=== PATIENT | female | born 1990 ===

== ENCOUNTER 2022-04-07 07:31 | Inpatient (IN) | payer OTHER ==
[~2022-04-07] VITALS: Ht 162 cm; Wt 75.8 kg
[2022-04-07] VITALS (25 sets, daily range): BP systolic 99–124; BP diastolic 53–76
[2022-04-07] MEDS ORDERED: morphine INJ 4 MG/ML 1 ML (VIAL/SYRINGE) IVP NR (10:30)
[2022-04-07] MEDS ORDERED: PREN1TAB19 PO (10:38)
[2022-04-07] MEDS ORDERED: AMPICILLIN FOR IV USE 2,000 MG in NS (IVPB) 50 ML IV SCH (16:03)
[2022-04-07] MEDS ORDERED: D5 LR IV SOLUTION 1,000 ML IV ONE (16:14)
[2022-04-07] MEDS ORDERED: D5 LR IV SOLUTION 1,000 ML IV SCH (16:15)
[2022-04-07] MEDS ORDERED: LIDOCAINE/EPI 2% 1:200,00 (XYLOCAINE) 10 ML VIAL INJ PRN (16:15)
[2022-04-07] MEDS ORDERED: OXYTOCIN PRE-MIX DRIP 500 ML IV SCH ×2 (16:15→21:45)
[2022-04-07 16:54] LABS: BASOPHILS # (AUTO) 0.1 10^3/uL (0.0-0.1); BASOPHILS % (AUTO) 1 % (0-10); EOSINOPHILS # (AUTO) 0.1 10^3/uL (0.0-0.3); EOSINOPHILS % (AUTO) 1 % (0-10); HEMATOCRIT 32 % (35-52); HEMOGLOBIN 10.1 g/dL (11.5-16.0); LYMPHOCYTES # (AUTO) 2.3 10^3/uL (1.0-4.0); LYMPHOCYTES % (AUTO) 15 % (12-44); MEAN CORPUSCULAR HEMOGLOBIN 26 pg (25-34); MEAN CORPUSCULAR HGB CONC 32 g/dL (32-36); MEAN CORPUSCULAR VOLUME 82 fL (80-99); MEAN PLATELET VOLUME 9.7 fL (9.0-12.2); MONOCYTES # (AUTO) 0.9 10^3/uL (0.0-1.0); MONOCYTES % (AUTO) 6 % (0-12); NEUTROPHILS # (AUTO) 11.5 10^3/uL (1.8-7.8); NEUTROPHILS % (AUTO) 76 % (42-75); PLATELET COUNT 308 10^3/uL (130-400); WHITE BLOOD COUNT 15.1 10^3/uL (4.3-11.0)
[2022-04-07] MEDS ORDERED: fentaNYL INJ 100 MCG/2 ML AMP ONE (18:11)
[2022-04-07] MEDS ORDERED: fentaNYL INJ 100 MCG/2 ML AMP IVP PRN (18:15)
[2022-04-07] MEDS ORDERED: MINERAL OIL 30 ML UDC ONE (20:01)
[2022-04-07] MEDS ORDERED: AMPICILLIN FOR IV USE 1,000 MG in NS (IVPB) 50 ML IV SCH (20:15)
--- NOTE | 2022-04-07 21:32 | History & Physical-OB ---
OB - Chief Complaint & HPI Date/Time Date of Admission: Date of Admission: Apr 07, 2022 at 15:53 Date seen by a Provider: Apr 07, 2022 Time Seen by a Provider: 12:50 Chief Complaint/History OB-Reason for Admission/Chief: Onset of Labor Hx : 2 Hx Para: 1 Expected Date of Delivery: Apr 15, 2022 Gestational Age in Weeks: 38 Gestational Age in Days: 6 Admission Nurse Assessment Rev: Yes History of Labs A+, antibody neg, RI. HIV/hepB/RPR NR. GBS pos. Other Transferred Ob care from [facility] to local care at 30 weeks. Allergies and Home Medications Allergies Coded Allergies: No Known Drug Allergies (Unverified , 04/07/22) Patient Home Medication List Home Medication List Reviewed: Yes Vit/Iron Fumarate/FA ( Vitamins Tablet) 28 Mg Iron-800 Mcg Tablet, 1 EACH PO DAILY, (Reported) Entered as Reported by: GLENN COTTRELL on 04/07/22 1038 Last Action: New Order OB - History Hx of Present Care: Yes Ultrasounds: Other (normal third trimester US but lateral ventricles not well seen, thought to be due to age) Obstetrical Complications: None Medical Complications: None Information Induced Hypertension: No Maternal Gestational Diabetes: No Hemorrhage: No Obstetrical History Hx : 2 Hx Para: 1 Hx # Term Pregnancies: 1 Hx # Pregnancies: 0 Number of Living Children: 1 Hx Termination: No Hx Multiple Gestation: No Hx Ectopic : No Hx Stillbirth: No Hx Complication: No Hx Induced Hypertens: No Hx Maternal Gestational Diabet: No Hx Hemorrhage: No Delivery History Hx Dystocia: No Hx Forceps Assisted Delivery: No Hx Vacuum Extraction Assisted: No Hx Placenta Abnormality: No Hx Distress: No Hx Large For Gestational Age I: Yes Hx Small for Gestational Age I: No Hx Section: No Hx Vaginal Delivery Post C-Sec: No Hx Blood Disorders: No Adverse Rxn to Tranfusion: No Patient Past Medical History PMhx: Denies SurgHx: appendectomy Social History/Family History Alcohol Use: Denies Use Recreational Drug Use: No Smoking Cessation: Never smoker 2nd Hand Smoke Exposure: No Immunizations Influenza Vaccine Up-to-Date: Yes; Up-to-Date COVID19 Vaccine 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: [employer] Hepatitis A: No Hepatitis B: No Tetanus Booster (TDap): Less than 5yrs Rubella: immune RPR/VDRL: Negative GBS Status: Positive HBsAG: Negative OB - Admission Exam Physical Exam Vitals: Vital Signs 04/07/22 04/07/22 04/07/22 07:40 19:43 19:54 Temp 36.3 Pulse 102 Resp 18 B/P (MAP) 118/64 (82) Pulse Ox 99 O2 Delivery Room Air HEENT: NCAT Lungs: Clear Abdomen: Gravid Extremities: Normal Cervical Dilatation: 4cm Station: Ballotable Membranes: Intact Accelerations: Accelerations Present Decelerations: No Decelerations Application Systems Administrator Variability: Average (6-25) Contractions on Admission: >10 Minutes Apart Labs Laboratory Tests Test 04/07/22 16:44 Range/Units White Blood Count 15.1 H 4.3-11.0 10^3/uL Red Blood Count 3.85 3.80-5.11 10^6/uL Hemoglobin 10.1 L 11.5-16.0 g/dL Hematocrit 32 L 35-52 % Mean Corpuscular Volume 82 80-99 fL Mean Corpuscular Hemoglobin 26 25-34 pg Mean Corpuscular Hemoglobin Concent 32 32-36 g/dL Red Cell Distribution Width 16.4 H 10.0-14.5 % Platelet Count 308 130-400 10^3/uL Mean Platelet Volume 9.7 9.0-12.2 fL Immature Granulocyte % (Auto) 2 % Neutrophils (%) (Auto) 76 H 42-75 % Lymphocytes (%) (Auto) 15 12-44 % Monocytes (%) (Auto) 6 0-12 % Eosinophils (%) (Auto) 1 0-10 % Basophils (%) (Auto) 1 0-10 % Neutrophils # (Auto) 11.5 H 1.8-7.8 10^3/uL Lymphocytes # (Auto) 2.3 1.0-4.0 10^3/uL Monocytes # (Auto) 0.9 0.0-1.0 10^3/uL Eosinophils # (Auto) 0.1 0.0-0.3 10^3/uL Basophils # (Auto) 0.1 0.0-0.1 10^3/uL Immature Granulocyte # (Auto) 0.3 H 0.0-0.1 10^3/uL OB - Assessment/Plan/Diagnosis Assessment Admission Dx Term intrauterine at 38w6d Prolonged latent phase of labor GBS positive Admission Status: Inpatient Order (span 2 midnights) Reason for Inpatient Admission: labor, delivery and postparutm course Plan Other Plan Pt had very slow change from 4 to 5 cm over a period of 8 hours, but with regular contractions and pain that was not tolerable for discharge, not improved with therapeutic rest with morphine. Discussed options with patient and she decided she would prefer to augment her latent labor with pitocin. SAIGE GUZMAN MD Apr 07, 2022 21:32
--- NOTE | 2022-04-07 21:41 | OB Labor & Delivery Record ---
Vag Delivery Note Vag Delivery Note Date of Delivery: 04/07/22 Preoperative Diagnosis: Chaya Kerr is a (31 /Para 2 / 1, Gestational Age (wks)38with 6 days Postoperative Diagnosis: Same Surgeon: SAIGE GUZMAN Anesthesia: None Delivery Type: Findings: Viable male , apgars 9/9, weight 3430 grams Lacerations: first degree perineal, anterior vulvar Intact placenta with 3 vessel cord. No nuchal cord, body cord or shoulder dystocia Estimated Blood Loss: 250 ml Complications: None Condition: Stable Description of Procedure: The patient is a 31 year old female who presented in labor. She was admitted and informed consent was obtained. Her labor course was remarkable for augmentation with pitocin. She progressed to complete dilatation and began to push. She was then set up for delivery. The infant's head was delivered atraumatically in the SOFIA position. The shoulders and remainder of the 's body were then delivered without difficulty. Upon delivery, the infant was vigorous and placed on maternal abdomen. After a delay, the cord was doubly clamped and cut and remained on maternal chest transitioning. An intact placenta with 3-vessel cord delivered via Joey and there was found to be minimal bleeding.~ Vigorous fundal massage was performed and the fundus was found to be firm. IV oxytocin was given. Examination of the vagina and perineum revealed a first degree perineal laceration repaired in the usual fashion with 3-0 vicryl rapide suture and an anterior vulvar laceration repaired with simple running suture with 3-0 Vicryl rapide. Following the repair, sponge, instrument and needle counts were correct. Mom and baby were both in stable condition in the labor suite. Vitals - Labs Vital Signs - I&O Vital Signs Date Time Temp Pulse Resp B/P (MAP) Pulse Ox O2 Delivery O2 Flow Rate FiO2 04/07/22 19:54 36.3 04/07/22 19:43 102 118/64 (82) Room Air 04/07/22 07:40 36.7 85 18 99 Room Air 04/07/22 07:35 36.7 85 18 99 Room Air Labs Laboratory Tests 04/07/22 16:44: White Blood Count 15.1H, Red Blood Count 3.85, Hemoglobin 10.1L, Hematocrit 32L, Mean Corpuscular Volume 82, Mean Corpuscular Hemoglobin 26, Mean Corpuscular Hemoglobin Concent 32, Red Cell Distribution Width 16.4H, Platelet Count 308, Mean Platelet Volume 9.7, Immature Granulocyte % (Auto) 2, Neutrophils (%) (Auto) 76H, Lymphocytes (%) (Auto) 15, Monocytes (%) (Auto) 6, Eosinophils (%) (Auto) 1, Basophils (%) (Auto) 1, Neutrophils # (Auto) 11.5H, Lymphocytes # (Auto) 2.3, Monocytes # (Auto) 0.9, Eosinophils # (Auto) 0.1, Basophils # (Auto) 0.1, Immature Granulocyte # (Auto) 0.3H SAIGE GUZMAN MD Apr 07, 2022 21:41
[2022-04-07] MEDS ORDERED: WITCH HAZEL(TUCKS) 40 EA JAR TOP PRN (21:45)
[2022-04-07] MEDS ORDERED: BENZOCAINE/MENTHOL (DERMOPLAST) 56 ML CAN TP PRN (21:45)
[2022-04-07] MEDS ORDERED: CATHETER FLUSH 10 ML SYR IV SCH (22:00)
[2022-04-07] MEDS: CATHETER FLUSH 10 ML SYR IV SCH (23:18)
[2022-04-07] MEDS: IBUPROFEN 600 MG (MOTRIN) TAB PO SCH (23:46)
[2022-04-08] MEDS ORDERED: MINERAL OIL 30 ML TOP ONE (01:30)
[2022-04-08 04:10] VITALS: BP 107/57
[2022-04-08 05:45] LABS: BASOPHILS # (AUTO) 0.1 10^3/uL (0.0-0.1); BASOPHILS % (AUTO) 0 % (0-10); EOSINOPHILS % (AUTO) 0 % (0-10); HEMATOCRIT 29 % (35-52); HEMOGLOBIN 9.5 g/dL (11.5-16.0); LYMPHOCYTES # (AUTO) 2.2 10^3/uL (1.0-4.0); LYMPHOCYTES % (AUTO) 11 % (12-44); MEAN CORPUSCULAR HEMOGLOBIN 26 pg (25-34); MEAN CORPUSCULAR HGB CONC 33 g/dL (32-36); MEAN CORPUSCULAR VOLUME 81 fL (80-99); MONOCYTES # (AUTO) 1.3 10^3/uL (0.0-1.0); MONOCYTES % (AUTO) 7 % (0-12); NEUTROPHILS # (AUTO) 15.4 10^3/uL (1.8-7.8); NEUTROPHILS % (AUTO) 80 % (42-75); PLATELET COUNT 278 10^3/uL (130-400); WHITE BLOOD COUNT 19.2 10^3/uL (4.3-11.0)
[2022-04-08] MEDS: IBUPROFEN 600 MG (MOTRIN) TAB PO SCH ×3 (06:04→18:25)
[2022-04-08] MEDS: CATHETER FLUSH 10 ML SYR IV SCH (06:05)
[2022-04-08 06:25] LABS: LYMPHOCYTES % (MANUAL) 9 %; MICROCYTOSIS SLIGHT; MONOCYTES % (MANUAL) 6 %; NEUTROPHILS % (MANUAL) 85 %; RBC MORPH NORMAL
[2022-04-08] MEDS ORDERED: MINERAL OIL 30 ML UDC ONE (07:25)
[2022-04-08 08:58] VITALS: BP 103/55
[2022-04-08] MEDS: DOCUSATE SODIUM 100 MG (COLACE) CAP PO SCH ×2 (08:58→22:00)
[2022-04-08 12:53] VITALS: BP 99/54
[2022-04-08 18:25] VITALS: BP 115/57
--- NOTE | 2022-04-08 22:02 | Postpartum Progress Note ---
Note Note Day # 1 Subjective: Patient is without complaints. Ambulating, voiding. Tolerating a regular diet without nausea or vomiting. Normal lochia. Pain is well controlled with oral pain medications. Breast feeding well, following Objective: Physical Exam: General - Alert and oriented, no apparent distress Abdomen - Soft, appropriately tender to palpation, non-distended, fundus firm at umbilicus Extremities - no edema, negative Rikki's bilaterally Assessment: 31 yo G2 now P2 post- day # 1, status post uncomplicated vaginal delivery. Recovering well, hemodynamically stable Post anemia of acute blood loss Plan: Routine care. Encourage breast feeding, consult Encourage ambulation. Continue daily PNV w/ iron Plan for discharge tomorrow with 6 week f.u with [place] Vitals - Labs Vital Signs - I&O Vital Signs Date Time Temp Pulse Resp B/P (MAP) Pulse Ox O2 Delivery O2 Flow Rate FiO2 04/08/22 18:25 36.9 82 18 115/57 (76) Room Air 04/08/22 12:53 36.8 70 18 99/54 (69) Room Air 04/08/22 08:58 37.8 75 18 103/55 (71) Room Air 04/08/22 04:10 36.6 69 16 107/57 (74) 98 Room Air 04/07/22 23:45 36.7 79 20 115/59 (77) 95 Room Air 04/07/22 22:01 75 99/58 (72) Room Air I & O 04/08/22 07:00 Intake Total 1300 ml Balance 1300 ml Labs Laboratory Tests 04/08/22 05:35: White Blood Count 19.2H, Red Blood Count 3.61L, Hemoglobin 9.5L, Hematocrit 29L, Mean Corpuscular Volume 81, Mean Corpuscular Hemoglobin 26, Mean Corpuscular Hemoglobin Concent 33, Red Cell Distribution Width 16.1H, Platelet Count 278, Mean Platelet Volume 10.0, Immature Granulocyte % (Auto) 1, Neutrophils (%) (Auto) 80H, Lymphocytes (%) (Auto) 11L, Monocytes (%) (Auto) 7, Eosinophils (%) (Auto) 0, Basophils (%) (Auto) 0, Neutrophils # (Auto) 15.4H, Lymphocytes # (Auto) 2.2, Monocytes # (Auto) 1.3H, Eosinophils # (Auto) 0.0, Basophils # (Auto) 0.1, Immature Granulocyte # (Auto) 0.2H, Neutrophils % (Manual) 85, Lymphocytes % (Manual) 9, Monocytes % (Manual) 6, Microcytosis SLIGHT, Blood Morphology Comment NORMAL CONCEPCIÓN RODRIGUEZ MD Apr 08, 2022 22:02
[2022-04-09 01:05] VITALS: BP 92/51
[2022-04-09] MEDS: IBUPROFEN 600 MG (MOTRIN) TAB PO SCH ×3 (01:05→12:02)
[2022-04-09 06:49] VITALS: BP 113/68
[2022-04-09 09:30] VITALS: BP 118/59
--- NOTE | 2022-04-09 09:46 | Discharge Summary ---
Diagnosis/Chief Complaint Date of Admission Apr 07, 2022 at 15:53 Date of Discharge 04/09/22 Discharge Summary-Simple/Stand Discharge Physical Examination Allergies: Coded Allergies: No Known Drug Allergies (Unverified , 04/07/22) Vitals & I&Os Vital Sign - Last 12Hours Date Time Temp Pulse Resp B/P (MAP) Pulse Ox O2 Delivery O2 Flow Rate FiO2 04/09/22 06:49 36.4 71 18 113/68 (83) 98 Room Air Hospital Course See final discharge diagnosis. Discharge Instructions to patient/family Please see electronic discharge instructions given to patient. Discharge Medications Reviewed and agree with Discharge Medication list on patient's Discharge Instruction sheet CONCEPCIÓN RODRIGUEZ MD Apr 09, 2022 09:46
[2022-04-09] MEDS ORDERED: DOCU100C37 PO (09:48)
[2022-04-09] MEDS ORDERED: IBUP-844 PO (09:48)
--- NOTE | 2022-04-09 09:48 | Discharge Summary ---
Discharge Inst-[facility] Reconcile Patient Problems Problems Reviewed?: Yes Depart Medications New, Converted or Re-Newed RX: Transmitted to Pharmacy New Medications: Docusate Sodium (Docusate Sodium) 100 Mg Capsule 100 MG PO BID, #28 CAP Ibuprofen (Ibu) 600 Mg Tablet 600 MG PO Q6HR, #90 TAB Continued Medications: Vit/Iron Fumarate/FA ( Vitamins Tablet) 28 Mg Iron-800 Mcg Tablet 1 EACH PO DAILY, TAB Follow Up/Instructions Goal/Follow Up: [address] Larsen Activity Activity: Activity as Tolerated Driving Instructions: You May Drive NO SMOKING: NO SMOKING Nothing Inside Vagina: No Douching, No [place], No Tampons Diet Discharge Diet: No Restrictions Symptoms to Report to : Bleeding Excessive, Fever Over 101 Degrees F, Shortness of Breath CONCEPCIÓN RODRIGUEZ MD Apr 09, 2022 09:48
[2022-04-09] MEDS: DOCUSATE SODIUM 100 MG (COLACE) CAP PO SCH (09:57)
[2022-04-09 14:00] VITALS: BP 118/59
== END 2022-04-09 14:00 | disposition home or self-care (01) | DRG 806 ==
LOC: LDRP 07:31 → WSo 07:31 → LDRP 15:53
PROVIDERS: ADMIT Family Medicine; ATTEND Family Medicine
PROC: 10E0XZZ Delivery of Products of Conception, External Approach (ICD-10-PCS; principal; 2022-04-07)
PROC: 0HQ9XZZ Repair Perineum Skin, External Approach (ICD-10-PCS; 2022-04-07)
DX: O99.824 Streptococcus B carrier state complicating childbirth (principal); D62 Acute posthemorrhagic anemia; Z37.0 Single live birth; O63.0 Prolonged first stage (of labor); O70.0 First degree perineal laceration during delivery; O90.81 Anemia of the puerperium; Z3A.38 38 weeks gestation of pregnancy
CPT/HCPCS: 36415; 85007; 85025; 85027; 86850; 86900; 86901